=== PATIENT | male | born 1940 | race Caucasian/White ===

== ENCOUNTER 2021-08-12 07:23 | Outpatient (CLI) | payer MEDICARE, OTHER | END 2021-08-12 07:24 | disposition home or self-care (01) | LOC: CT 07:23 | PROVIDERS: ATTEND Family Medicine | DX: Z09 Encounter for follow-up examination after completed treatment for conditions other than malignant neoplasm (principal); I67.89 Other cerebrovascular disease; I67.2 Cerebral atherosclerosis; I65.29 Occlusion and stenosis of unspecified carotid artery; Z86.73 Personal history of transient ischemic attack (TIA), and cerebral infarction without residual deficits | CPT/HCPCS: 70450 ==

== ENCOUNTER 2021-09-19 11:28 | Outpatient (CLI) | payer MEDICARE, OTHER | END 2021-09-19 11:29 | disposition home or self-care (01) | LOC: RAD 11:28 | PROVIDERS: ATTEND Family Medicine | DX: R20.0 Anesthesia of skin (principal); M47.816 Spondylosis without myelopathy or radiculopathy, lumbar region | CPT/HCPCS: 72100 ==

== ENCOUNTER 2021-12-15 12:34 | Outpatient (CLI) | payer MEDICARE, OTHER | END 2021-12-15 12:35 | disposition home or self-care (01) | LOC: CT 12:34 | PROVIDERS: ATTEND Neurological Surgery | DX: R25.8 Other abnormal involuntary movements (principal); R20.2 Paresthesia of skin; I67.89 Other cerebrovascular disease; I65.23 Occlusion and stenosis of bilateral carotid arteries; I67.2 Cerebral atherosclerosis | CPT/HCPCS: 70470; 82565 ==

== ENCOUNTER 2022-03-03 12:17 | Outpatient (CLI) | payer MEDICARE, OTHER | END 2022-03-03 12:18 | disposition home or self-care (01) | LOC: CT 12:17 | PROVIDERS: ATTEND Neurological Surgery | DX: M48.02 Spinal stenosis, cervical region (principal) | CPT/HCPCS: 70498 ==

== ENCOUNTER 2022-03-23 10:27 | Outpatient (CLI) | payer MEDICARE, OTHER | END 2022-03-23 10:28 | disposition home or self-care (01) | LOC: TBSIIMAG 10:27 | PROVIDERS: ATTEND Neurological Surgery | DX: M54.2 Cervicalgia (principal) | CPT/HCPCS: 72040 ==

== ENCOUNTER 2022-03-29 10:02 | Observation (INO) | payer MEDICARE, OTHER ==
[2022-03-29 11:48] LABS: #Monocytes 0.6 thou/uL (0.11-0.59); #Neutrophils 5.8 thou/uL (1.40-6.50); %Basophils 0.4 % (0.0-1.0); %Eosinophils 0.2 % (0.0-10.0); %Lymphocytes 12.9 % (21.0-51.0); %Monocytes 8.2 % (0.0-10.0); %Neutrophils 78.3 % (42.0-75.0); Hemoglobin 15.7 g/dL (14.0-18.0); Mean Corpuscular Hemoglobin 32.2 pg (27.0-31.0); Mean Corpuscular Volume 94.9 fl (78.0-98.0); Mean Platelet Volume 8.5 fL (7.4-10.4); Platelet Count 165 10x3/uL (130-400); RBC Distribution Width 11.4 % (11.5-14.5); Red Blood Cell (RBC) Count 4.88 mill/uL (4.70-6.10); White Blood Cell (WBC) Count 7.4 10x3/uL (4.8-10.8)
[2022-03-29 12:08] LABS: ALT (SGPT) 33 U/L (8-55); AST (SGOT) 23 U/L (5-34); Albumin 4.6 g/dL (3.4-4.8); Alkaline Phosphatase 77 U/L (40-110); Anion Gap 20 mmol/L (10-20); BUN (Urea Nitrogen) 34 mg/dL (8.4-25.7); Bilirubin, Total 1.2 mg/dL (0.2-1.2); Calc. Creatinine Clearance 0 mL/min (70-130); Calcium 9.6 mg/dL (7.8-10.44); Carbon Dioxide 24 mmol/L (23-31); Chloride 97 mmol/L (98-107); Estimated GFR 62; Globulin 2.3 g/dL (2.4-3.5); Glucose 219 mg/dL (83-110); Potassium 5.3 mmol/L (3.5-5.1); Protein, Total 6.9 g/dL (5.8-8.1); Sodium 136 mmol/L (136-145)
[2022-03-29] MEDS ORDERED: Acetaminophen 325 MG TAB PO PRN (15:11)
[2022-03-29] MEDS ORDERED: Ondansetron PF 4 MG/2 ML Vial IVP PRN (15:11)
[2022-03-29] MEDS ORDERED: Ondansetron ODT 4 MG TAB PO PRN (15:11)
[2022-03-29] MEDS ORDERED: Dextrose 50% Abboject 50 ML SYRINGE SLOW IVP PRN (15:39)
[2022-03-29] MEDS ORDERED: Dextrose 5% in Water 1,000 ML IV PRN (15:39)
[2022-03-29] MEDS ORDERED: HumaLOG 300 UNITS/3 ML VIAL SC PRN ×2 (15:39)
[2022-03-29 15:43] LABS: INR-International Normal Ratio 1.1; Prothrombin Time 14.9 sec (12.0-14.7)
[2022-03-29 15:44] LABS: PTT 23.9 sec (22.9-36.1)
[2022-03-29] MEDS ORDERED: HUM PROTHROMBIN CPLX(PCC)4FACT 2,248 UNIT in Admixture Fee 1 EACH IV SCH (16:00)
[2022-03-29] MEDS ORDERED: Morphine 4 MG/ML VIAL SLOW IVP PRN (20:08)
[2022-03-30 01:18] VITALS: BMI 25.4
[2022-03-30 04:48] VITALS: BP 178/86; TEMP 98.8
[2022-03-30 05:55] LABS: #Lymphocytes 1.4 thou/uL (1.20-3.40); #Monocytes 0.7 thou/uL (0.11-0.59); #Neutrophils 5.2 thou/uL (1.40-6.50); %Basophils 0.2 % (0.0-1.0); %Eosinophils 0.2 % (0.0-10.0); %Lymphocytes 19.7 % (21.0-51.0); %Monocytes 9.5 % (0.0-10.0); %Neutrophils 70.5 % (42.0-75.0); Hemoglobin 16.1 g/dL (14.0-18.0); Mean Corpuscular HGB CONC 34.3 g/dL (32.0-36.0); Mean Corpuscular Hemoglobin 32.5 pg (27.0-31.0); Mean Corpuscular Volume 94.8 fl (78.0-98.0); Platelet Count 157 10x3/uL (130-400); RBC Distribution Width 11.5 % (11.5-14.5); Red Blood Cell (RBC) Count 4.96 mill/uL (4.70-6.10); White Blood Cell (WBC) Count 7.3 10x3/uL (4.8-10.8)
[2022-03-30 05:59] LABS: Prothrombin Time 13.4 sec (12.0-14.7)
[2022-03-30 06:00] LABS: PTT 23.2 sec (22.9-36.1)
[2022-03-30 06:13] LABS: Anion Gap 17 mmol/L (10-20); BUN (Urea Nitrogen) 30 mg/dL (8.4-25.7); Calc. Creatinine Clearance 57 mL/min (70-130); Calcium 9.7 mg/dL (7.8-10.44); Carbon Dioxide 28 mmol/L (23-31); Chloride 99 mmol/L (98-107); Estimated GFR 58; Glucose 182 mg/dL (83-110); Potassium 5.7 mmol/L (3.5-5.1); Sodium 138 mmol/L (136-145)
== END 2022-03-30 06:26 | disposition home or self-care (01) ==
LOC: ERS 10:02 → SJJU 15:11
PROVIDERS: ADMIT Hospitalist; ATTEND Hospitalist
DX: M54.9 Dorsalgia, unspecified (principal); M79.604 Pain in right leg; M79.605 Pain in left leg; E11.9 Type 2 diabetes mellitus without complications; I48.20 Chronic atrial fibrillation, unspecified; I70.0 Atherosclerosis of aorta; K57.30 Diverticulosis of large intestine without perforation or abscess without bleeding; M47.815 Spondylosis without myelopathy or radiculopathy, thoracolumbar region; M47.816 Spondylosis without myelopathy or radiculopathy, lumbar region; M51.36 Other intervertebral disc degeneration, lumbar region; M48.061 Spinal stenosis, lumbar region without neurogenic claudication; M51.37 Other intervertebral disc degeneration, lumbosacral region; M47.817 Spondylosis without myelopathy or radiculopathy, lumbosacral region; M48.07 Spinal stenosis, lumbosacral region; Z85.038 Personal history of other malignant neoplasm of large intestine; Z85.46 Personal history of malignant neoplasm of prostate; Z86.73 Personal history of transient ischemic attack (TIA), and cerebral infarction without residual deficits; Z87.891 Personal history of nicotine dependence; Z79.01 Long term (current) use of anticoagulants; Z79.82 Long term (current) use of aspirin; Z79.84 Long term (current) use of oral hypoglycemic drugs; Z79.899 Other long term (current) drug therapy; Z95.0 Presence of cardiac pacemaker; Z20.822 Contact with and (suspected) exposure to COVID-19; M54.50 Low back pain, unspecified; S24.0XXA Concussion and edema of thoracic spinal cord, initial encounter; S34.01XA Concussion and edema of lumbar spinal cord, initial encounter; M48.8X4 Other specified spondylopathies, thoracic region
CPT/HCPCS: 71046; 72131; 72158; 80048; 80053; 82962 ×2; 85025 ×2; 85610 ×2; 85652; 85730 ×2; 86140; 96375; G0378 ×3; J7168; U0003; U0005; 36415; 36416; A9579; J2270

== ENCOUNTER 2022-03-30 06:43 | Outpatient (CLI) | payer MEDICARE, OTHER | END 2022-03-30 06:44 | disposition home or self-care (01) | LOC: MRI 06:43 | PROVIDERS: ATTEND Neurological Surgery | DX: M54.50 Low back pain, unspecified (principal); S24.0XXA Concussion and edema of thoracic spinal cord, initial encounter; S34.01XA Concussion and edema of lumbar spinal cord, initial encounter; M48.8X4 Other specified spondylopathies, thoracic region | CPT/HCPCS: 72158 ==

== ENCOUNTER 2022-03-30 09:41 | Emergency (ER) | payer MEDICARE, OTHER ==
[2022-03-30 12:44] LABS: #Lymphocytes 1.5 thou/uL (1.20-3.40); #Monocytes 0.9 thou/uL (0.11-0.59); %Basophils 0.3 % (0.0-1.0); %Eosinophils 0.2 % (0.0-10.0); %Lymphocytes 15.4 % (21.0-51.0); %Monocytes 9.6 % (0.0-10.0); %Neutrophils 74.5 % (42.0-75.0); Hemoglobin 15.9 g/dL (14.0-18.0); Mean Corpuscular HGB CONC 33.5 g/dL (32.0-36.0); Mean Corpuscular Volume 95.4 fl (78.0-98.0); Mean Platelet Volume 8.9 fL (7.4-10.4); Platelet Count 165 10x3/uL (130-400); RBC Distribution Width 11.4 % (11.5-14.5); Red Blood Cell (RBC) Count 4.97 mill/uL (4.70-6.10); White Blood Cell (WBC) Count 9.4 10x3/uL (4.8-10.8)
[2022-03-30 12:46] LABS: PTT 23.1 sec (22.9-36.1); Prothrombin Time 13.6 sec (12.0-14.7)
[2022-03-30 12:58] LABS: ALT (SGPT) 23 U/L (8-55); AST (SGOT) 18 U/L (5-34); Albumin 4.1 g/dL (3.4-4.8); Alkaline Phosphatase 71 U/L (40-110); Anion Gap 19 mmol/L (10-20); BUN (Urea Nitrogen) 30 mg/dL (8.4-25.7); Calc. Creatinine Clearance 0 mL/min (70-130); Calcium 9.3 mg/dL (7.8-10.44); Carbon Dioxide 23 mmol/L (23-31); Chloride 97 mmol/L (98-107); Estimated GFR 65; Globulin 2.4 g/dL (2.4-3.5); Glucose 201 mg/dL (83-110); Potassium 5.2 mmol/L (3.5-5.1); Protein, Total 6.5 g/dL (5.8-8.1); Sodium 134 mmol/L (136-145)
[2022-03-30] MEDS ORDERED: ADMIXTURE FEE IV SCH (13:00)
[2022-03-30] MEDS ORDERED: HUMAN PROTHROMBIN COMPLX IV SCH (13:00)
[2022-03-30 14:39] LABS: Bilirubin Negative (Negative); Blood, Urine Negative (Negative); Clarity Clear (Clear); Glucose, Urine (Dipstick) Greater than 1000 mg/dL (Negative); Ketone, Urine 150 mg/dL (Negative); Leukocyte Negative Leu/uL (Negative); Nitrite Negative (Negative); Protein, Urine (Dipstick) 20 mg/dL (Neg-Trace); Specific Gravity, Urine 1.035 (1.002-1.036); Urobilinogen Normal mg/dL (Less than 2)
== END 2022-03-30 16:03 | disposition home or self-care (01) ==
LOC: ERS 09:41
DX: S24.104A Unspecified injury at T11-T12 level of thoracic spinal cord, initial encounter (principal); S34.104A Unspecified injury to L4 level of lumbar spinal cord, initial encounter; S34.102A Unspecified injury to L2 level of lumbar spinal cord, initial encounter; R53.1 Weakness; R33.9 Retention of urine, unspecified; E11.9 Type 2 diabetes mellitus without complications; Z79.01 Long term (current) use of anticoagulants; Z79.82 Long term (current) use of aspirin; Z79.84 Long term (current) use of oral hypoglycemic drugs; Z79.899 Other long term (current) drug therapy; Z87.891 Personal history of nicotine dependence
CPT/HCPCS: 51702; 80053; 81003; 85025; 85610; 85730; 96374; 99284; J7168; 36415